=== PATIENT | female | born 1950 | race African-American/Black ===

== ENCOUNTER 2018-10-18 09:25 | Outpatient (CLI) | payer MEDICARE | END 2018-10-18 09:26 | disposition home or self-care (01) | LOC: BICMAMMO 09:25 | PROVIDERS: ATTEND Family Medicine | DX: Z12.31 Encounter for screening mammogram for malignant neoplasm of breast (principal); R92.1 Mammographic calcification found on diagnostic imaging of breast | CPT/HCPCS: 77063; 77067 ==

== ENCOUNTER 2019-09-17 13:00 | Outpatient (CLI) | payer MEDICARE ==
--- NOTE | 2019-09-17 13:31 | RAD ---
XR Toe(s) Lt Min 2 View HISTORY: Toe pain. Gout. COMPARISON: None. FINDINGS: The bones appear demineralized. There are arthritic changes of the first metatarsal phalang eal joint no gouty tophi are seen or any gross bony destructive change. No fractures. IMPRESSION: Arthritic changes of the great toe.
== END 2019-09-17 13:01 | disposition home or self-care (01) ==
LOC: BICRAD 13:00
PROVIDERS: ATTEND Podiatrist
DX: M79.672 Pain in left foot (principal); M10.00 Idiopathic gout, unspecified site; M19.072 Primary osteoarthritis, left ankle and foot
CPT/HCPCS: 84550

== ENCOUNTER 2020-06-05 09:58 | Emergency (ER) | payer MEDICARE, OTHER ==
[2020-06-06 12:54] LABS: SARS-CoV-2 MS2 Positive; SARS-CoV-2 N Gene Negative; SARS-CoV-2 S Gene Negative; SARS-CoV-2 by NAA Not Detected (NotDetected); SARS-CoV-2 orf1ab Negative
== END 2020-06-05 10:12 | disposition home or self-care (01) ==
LOC: ERS 09:58
DX: Z20.828 Contact with and (suspected) exposure to other viral communicable diseases (principal); E11.9 Type 2 diabetes mellitus without complications; K21.9 Gastro-esophageal reflux disease without esophagitis; Z79.84 Long term (current) use of oral hypoglycemic drugs; Z79.82 Long term (current) use of aspirin; Z79.02 Long term (current) use of antithrombotics/antiplatelets
CPT/HCPCS: 99283; U0003; 87635

== ENCOUNTER 2020-12-29 15:31 | Emergency (ER) | payer MEDICARE | END 2020-12-29 16:05 | disposition home or self-care (01) | LOC: ERS 15:31 | DX: K04.7 Periapical abscess without sinus (principal); K02.9 Dental caries, unspecified; E11.9 Type 2 diabetes mellitus without complications; K21.9 Gastro-esophageal reflux disease without esophagitis; Z79.899 Other long term (current) drug therapy; Z79.82 Long term (current) use of aspirin; Z79.84 Long term (current) use of oral hypoglycemic drugs | CPT/HCPCS: 99282 ==

== ENCOUNTER 2022-02-16 09:19 | Outpatient (CLI) | payer MEDICARE, OTHER | END 2022-02-16 09:20 | disposition home or self-care (01) | LOC: BICMAMMO 09:19 | PROVIDERS: ATTEND Family Medicine | DX: Z13.820 Encounter for screening for osteoporosis (principal); Z78.0 Asymptomatic menopausal state; M85.89 Other specified disorders of bone density and structure, multiple sites | CPT/HCPCS: 77080 ==

== ENCOUNTER 2023-02-20 06:10 | Emergency (ER) | payer MEDICARE ==
[2023-02-20] MEDS ORDERED: Acetaminophen 500 MG TAB ONE (07:04)
== END 2023-02-20 08:55 | disposition home or self-care (01) ==
LOC: ERS 06:10
DX: U07.1 COVID-19 (principal); E11.9 Type 2 diabetes mellitus without complications; I10 Essential (primary) hypertension; K21.9 Gastro-esophageal reflux disease without esophagitis; Z79.82 Long term (current) use of aspirin
CPT/HCPCS: 71045; 93005

== ENCOUNTER 2023-05-04 07:14 | Outpatient (CLI) | payer MEDICARE ==
[2023-05-04] MEDS ORDERED: Iopamidol 370 76% 100 ML VIAL ONE (12:22)
== END 2023-05-04 07:15 | disposition home or self-care (01) ==
LOC: BICCT 07:14
PROVIDERS: ATTEND Internal Medicine Gastroenterology
DX: K43.9 Ventral hernia without obstruction or gangrene (principal); K59.09 Other constipation; N81.10 Cystocele, unspecified
CPT/HCPCS: 74177; Q9967

== ENCOUNTER 2023-10-11 20:16 | Inpatient (IN) | payer MEDICARE, SELFPAY ==
[2023-10-11 23:09] LABS: #Eosinphils 0.1 thou/uL (0.0-0.7); #Monocytes 0.4 thou/uL (0.11-0.59); %Basophils 0.4 % (0.0-1.0); %Lymphocytes 30.7 % (21.0-51.0); %Monocytes 8.2 % (0.0-10.0); %Neutrophils 58.5 % (42.0-75.0); Hematocrit 37.2 % (36.0-47.0); Hemoglobin 11.9 g/dL (12.0-16.0); Mean Corpuscular Hemoglobin 27.7 pg (27.0-31.0); Mean Corpuscular Volume 86.7 fl (78.0-98.0); Mean Platelet Volume 9.9 fL (7.4-10.4); Platelet Count 194 10x3/uL (130-400); RBC Distribution Width 15.6 % (11.5-14.5); Red Blood Cell (RBC) Count 4.29 mill/uL (4.20-5.40); White Blood Cell (WBC) Count 5.1 10x3/uL (4.8-10.8)
[2023-10-11] MEDS ORDERED: Dextrose 50% Abboject 50 ML SYRINGE SLOW IVP PRN (23:15)
[2023-10-11] MEDS ORDERED: HumaLOG 300 UNITS/3 ML VIAL SC PRN ×2 (23:15)
[2023-10-11] MEDS ORDERED: Ondansetron PF 4 MG/2 ML Vial IVP PRN (23:15)
[2023-10-11] MEDS ORDERED: Dextrose 5% in Water 1,000 ML IV PRN (23:15)
[2023-10-11] MEDS ORDERED: Glucagon 1 MG/ML KIT IM PRN (23:15)
[2023-10-11] MEDS ORDERED: Acetaminophen 325 MG TAB PO PRN (23:15)
[2023-10-11 23:31] LABS: ALT (SGPT) 12 U/L (8-55); AST (SGOT) 13 U/L (5-34); Albumin 3.7 g/dL (3.4-4.8); Alkaline Phosphatase 76 U/L (40-110); Anion Gap 11 mmol/L (10-20); BUN (Urea Nitrogen) 18 mg/dL (9.8-20.1); Bilirubin, Total 0.3 mg/dL (0.2-1.2); Calc. Creatinine Clearance 0 mL/min (70-130); Calcium 8.9 mg/dL (7.8-10.44); Carbon Dioxide 24 mmol/L (23-31); Chloride 106 mmol/L (98-107); Estimated GFR 57; Globulin 2.9 g/dL (2.4-3.5); Glucose 333 mg/dL (83-110); Potassium 3.9 mmol/L (3.5-5.1); Protein, Total 6.6 g/dL (5.8-8.1); Sodium 137 mmol/L (136-145)
[2023-10-11] MEDS ORDERED: Aspirin 81 mg Enteric Coated Tablet PO SCH (23:45)
[2023-10-11] MEDS ORDERED: Atorvastatin Calcium 10 MG TAB PO SCH (23:45)
[2023-10-11] MEDS ORDERED: Meclizine HCl 25 MG TAB PO PRN (23:47)
[2023-10-12 00:07] LABS: Hemoglobin A1c 8.4 % (4.0-6.0)
[2023-10-12 02:12] VITALS: BMI 36.3
[2023-10-12 05:01] LABS: #Eosinphils 0.2 thou/uL (0.0-0.7); #Monocytes 0.5 thou/uL (0.11-0.59); #Neutrophils 2.1 thou/uL (1.40-6.50); %Basophils 0.5 % (0.0-1.0); %Eosinophils 3.6 % (0.0-10.0); %Monocytes 11.1 % (0.0-10.0); %Neutrophils 47.8 % (42.0-75.0); Hematocrit 38.1 % (36.0-47.0); Mean Corpuscular HGB CONC 31.5 g/dL (32.0-36.0); Mean Corpuscular Hemoglobin 27.6 pg (27.0-31.0); Mean Corpuscular Volume 87.8 fl (78.0-98.0); Platelet Count 203 10x3/uL (130-400); RBC Distribution Width 15.7 % (11.5-14.5); Red Blood Cell (RBC) Count 4.34 mill/uL (4.20-5.40); White Blood Cell (WBC) Count 4.4 10x3/uL (4.8-10.8)
[2023-10-12 05:26] LABS: Anion Gap 12 mmol/L (10-20); BUN (Urea Nitrogen) 17 mg/dL (9.8-20.1); Calc. Creatinine Clearance 83 mL/min (70-130); Calcium 9.3 mg/dL (7.8-10.44); Carbon Dioxide 25 mmol/L (23-31); Cardiac Risk 3.8 (Less than 4.5); Chloride 109 mmol/L (98-107); Cholesterol 177 mg/dl (< 200 Desired); Estimated GFR 64; Glucose 128 mg/dL (83-110); HDL Cholesterol 47 mg/dL (>60 Neg Risk); LDL Cholesterol, Calculated 110 mg/dL; Potassium 3.7 mmol/L (3.5-5.1); Sodium 142 mmol/L (136-145); Triglycerides 100 mg/dL (Less than 150)
[2023-10-12] MEDS ORDERED: Iopamidol 370 76% 100 ML VIAL ONE (08:54)
[2023-10-12] MEDS ORDERED: Clopidogrel Bisulfate 75 MG TAB PO SCH (09:00)
[2023-10-12] MEDS: Insulin Glargine 30 UNITS/0.3 ML VIAL SC SCH (10:40)
[2023-10-12] MEDS: Aspirin 81 mg Enteric Coated Tablet PO SCH (10:41)
[2023-10-12] MEDS: Heparin 5,000 UNITS/ML VIAL SC SCH ×3 (10:41→20:48)
[2023-10-12] MEDS: Losartan 25 MG TAB PO SCH (10:41)
[2023-10-12] MEDS: Cholecalciferol 1,000 UNITS (25 MCG) TAB PO SCH (10:41)
[2023-10-12] MEDS: Labetalol HCl 100 MG/20 ML VIAL SLOW IVP PRN ×3 (12:14→20:49)
[2023-10-12] MEDS ORDERED: Amlodipine 5 MG TAB PO SCH ×2 (12:45→21:00)
[2023-10-12] MEDS ORDERED: HumaLOG 300 UNITS/3 ML VIAL SC PRN (16:29)
[2023-10-12] MEDS ORDERED: NIFEdipine XL 30 MG ER.TAB PO SCH (16:45)
[2023-10-12] MEDS: HumaLOG 300 UNITS/3 ML VIAL SC PRN (19:17)
[2023-10-12] MEDS: Gabapentin 300 MG CAP PO SCH ×2 (20:46→22:36)
[2023-10-12] MEDS ORDERED: Atorvastatin Calcium 20 MG TAB PO SCH (21:00)
[2023-10-13] MEDS: HumaLOG 300 UNITS/3 ML VIAL SC PRN (06:08)
[2023-10-13 08:11] VITALS: TEMP 98.2
[2023-10-13] MEDS: Aspirin 81 mg Enteric Coated Tablet PO SCH (08:58)
[2023-10-13] MEDS: Cholecalciferol 1,000 UNITS (25 MCG) TAB PO SCH (08:58)
[2023-10-13] MEDS: Insulin Glargine 30 UNITS/0.3 ML VIAL SC SCH (08:58)
[2023-10-13] MEDS: Losartan 25 MG TAB PO SCH (08:58)
[2023-10-13] MEDS ORDERED: Amlodipine 5 MG TAB PO SCH (09:00)
[2023-10-13] MEDS ORDERED: NIFEdipine XL 30 MG ER.TAB PO SCH ×2 (09:00→11:15)
[2023-10-13 11:04] VITALS: BP 171/84
[2023-10-13] MEDS ORDERED: Atorvastatin Calcium 40 MG TAB PO SCH (21:00)
== END 2023-10-13 11:48 | disposition home or self-care (01) | DRG 69 ==
LOC: 2SE 22:26 → OBSVTOIN 10-12 16:36
PROVIDERS: ADMIT Student in an Organized Health Care Education/Training Program; ATTEND Internal Medicine
DX: G45.9 Transient cerebral ischemic attack, unspecified (principal); M19.90 Unspecified osteoarthritis, unspecified site; E66.9 Obesity, unspecified; E11.22 Type 2 diabetes mellitus with diabetic chronic kidney disease; N18.2 Chronic kidney disease, stage 2 (mild); I12.9 Hypertensive chronic kidney disease with stage 1 through stage 4 chronic kidney disease, or unspecified chronic kidney disease; Z79.82 Long term (current) use of aspirin; Z79.899 Other long term (current) drug therapy; Z79.84 Long term (current) use of oral hypoglycemic drugs; Z86.73 Personal history of transient ischemic attack (TIA), and cerebral infarction without residual deficits; Z90.710 Acquired absence of both cervix and uterus; Z98.890 Other specified postprocedural states; Z68.36 Body mass index [BMI] 36.0-36.9, adult
CPT/HCPCS: 36415; 36416; 70498; 70551; 80048; 80053; 80061; 83036; 85025; 93306; 93880; J1644; J1650; J1815; Q9967